=== PATIENT | female | born 1960 | race African-American/Black ===

== ENCOUNTER 2018-06-08 00:45 | Emergency (ER) | payer BC ==
[2018-06-08] MEDS ORDERED: ERYTHROMYCIN 0.5% OPHTHALMIC OINTMENT 3.5 GM TUBE OD ONE (01:57)
[2018-06-08] MEDS ORDERED: ERYTHROMYCIN 0.5% OPHTHALMIC OINTMENT 3.5 GM TUBE ONE (02:01)
--- NOTE | 2018-06-08 02:10 | PDOC ---
History of Present Illness - General Stated Complaint: ITCHY EYE Time Seen by Provider: 06/08/18 01:39 History Source: Patient Exam Limitations: No Limitations - History of Present Illness Initial Comments: 06/08/18 02:02 HISTORY OF PRESENT ILLNESS: This 57-year-old woman who presents emergency department for evaluation of itchiness and irritation to the right eye which has been intermittent over the past 3 weeks. She noted the pain it started 3 weeks ago but it spontaneously resolved after a few days. Patient maintains that there was still a minor aches over the period which eventually resolved after approximately one week. Patient now has had 3-4 days of itching and irritation to her eye. She reports the irritation is in the right eye at the 5 o 'clock position over the sclera. She denies any blurry vision, headaches, visual disturbances or floaters. No recent travel or sick contacts. PAST MEDICAL HISTORY: Breast CA SURGICAL HISTORY: Denies ALLERGIES: Codeine REVIEW OF SYSTEMS General/Constitutional: Denies fever or chills. Denies weakness, weight change. HEENT: see HPI Cardiovascular: Denies chest pain or shortness of breath. Respiratory: Denies cough, wheezing, or hemoptysis. Gastrointestinal: Denies nausea, vomiting, diarrhea or constipation. Denies rectal bleeding. Genitourinary: Denies dysuria, frequency, or change in urination. Musculoskeletal: Denies joint or muscle swelling or pain. Denies neck or back pain. Skin and breasts: Denies rash or easy bruising. Neurologic: Denies headache, vertigo, loss of consciousness, or loss of sensation. Psychiatric: Denies depression or anxiety. Endocrine: Denies increased thirst. Denies abnormal weight change. Hematologic/Lymphatic: Denies anemia, easy bleeding, or history of blood clots. Allergic/Immunologic: Denies hives or skin allergy. Denies latex allergy. PHYSICAL EXAM General Appearance: Well-appearing, appropriately dressed. No apparent distress , no intoxication. HEENT: EOMI, PERRLA, normal ENT inspection, normal voice, TMs normal, pharynx normal. No conjunctival pallor. No photophobia, scleral icterus. Neck: Supple. Trachea midline. No tenderness, rigidity, carotid bruit, stridor , lymphadenopathy, or thyromegaly. Respiratory/Chest: Lungs CTAB. No shortness of breath, chest tenderness, respiratory distress, accessory muscle use. No crackles, rales, rhonchi, stridor , wheezing, dullness Cardiovascular: RRR. S1, S2. No JVD, murmur, bradycardia, tachycardia. Neurologic: case management assistant II-XII intact. Fully oriented, alert. Appropriate mood/affect. Motor strength 5/5. No appreciable EOM palsy, facial droop or sensory deficit. 06/11/18 12:00 Past History - Past Medical History Allergies/Adverse Reactions: Allergies Allergy/AdvReac Type Severity Reaction Status Date / Time codeine [Codeine] AdvReac Mild Nausea Verified 06/08/18 02:21 Home Medications: Ambulatory Orders Verapamil 240 mg PO DAILY 04/20/11 Aspirin [ASA -] 81 mg PO DAILY 12/01/11 Anastrozole [Arimidex -] 1 mg PO DAILY 12/08/11 Irbesartan/Hydrochlorothiazide [Avalide 150-12.5 mg Tablet] 1 each PO DAILY 08/03 Albuterol Sulfate Inhaler - [Ventolin HFA Inhaler -] 2 inh IH Q4H PRN #1 inh Azithromycin [Zithromax Tri-Nael (3 DAYS) -] 500 mg PO DAILY #3 tablet 09/27/17 Ipratropium [place] 30 ml NS BID PRN #1 spray 09/27/17 Methylprednisolone [Medrol Dose Nael] 4 mg PO ASDIR #21 tablet 09/27/17 Erythromycin 0.5% Eye Ointment [Erythromycin 0.5% Eye Ointment -] 1 applic OD QID #1 tube 06/08/18 Anemia: No Asthma: No Cancer: Yes (BREAST 2002) Cardiac Disorders: Yes (ISCHAEMIA) CVA: No COPD: No CHF: No Dementia: No Diabetes: No GI Disorders: No Disorders: No HTN: Yes Hypercholesterolemia: Yes Liver Disease: No Seizures: No Thyroid Disease: No - Surgical History Abdominal Surgery: Yes (TRANSFLAP FOR BREAST RECONSTRUCTION) Appendectomy: No Cardiac Surgery: No Cholecystectomy: No Lung Surgery: No Neurologic Surgery: No Orthopedic Surgery: No - Immunization History Td Vaccination: Yes Immunization Up to Date: Yes - Suicide/Smoking/Psychosocial Hx Smoking Status: No Smoking History: Never smoked Have you smoked in the past 12 months: No Number of Cigarettes Smoked Daily: 0 Hx Alcohol Use: No Drug/Substance Use Hx: No Substance Use Type: None Hx Substance Use Treatment: No Medical Decision Making - Medical Decision Making 06/08/18 01:58 A/P: 57-year-old woman with right eye irritation intermittent for 3 weeks EYE EXAMINATION: Visual acuity: 20/20 in the left eye, 20/20 in the right eye, near, corrected The lid and lashes are normal. Extraocular movements are intact. The conjunctiva is clear without injection, or discharge. Mild erythema present to right conjunctiva. The corneal surface is normal post tetracaine and fluorescein. There is no corneal abrasion or foreign body. There is no abnormal fluorescein uptake. The pupils are equal, round and reactive to light. The fundus shows normal vessels and normal discs. No retained foreign body under the upper eyelid I will treat the patient for conjunctivitis. Erythromycin ointment to the right eye Discharge home *DC/Admit/Observation/Transfer Diagnosis at time of Disposition: Conjunctivitis Qualifiers: Conjunctivitis type: acute Acute conjunctivitis type: unspecified Laterality: right Qualified Code(s): H10.31 - Unspecified acute conjunctivitis, right eye - Discharge Dispostion Disposition: HOME Condition at time of disposition: Stable Decision to Admit order: No - Prescriptions Prescriptions: Erythromycin 0.5% Eye Ointment [Erythromycin 0.5% Eye Ointment -] 1 applic OD QID #1 tube - Referrals Referrals: Moshe Bae MD [Primary Care Provider] - Humble Gómez MD [Staff Physician] - - Patient Instructions Additional Instructions: Rest, avoid rubbing eyes Wash hands frequently as this is very contagious Wash hands, use eye drops as directed, wash hands after use Do not share eye ointment with other person to may become infected as this will infect them Erthromycin ointment to affected eye 4 times a day for 5 days Avoid contact with others until redness and discharge is gone from eyes. Followup with ophthalmology or private physician as needed - Post Discharge Activity Forms/Work/School Notes: Back to Work
[2018-06-08 02:28] VITALS: BP 147/63; PULSE 82; TEMP 97.6; BMI 25.8
== END 2018-06-08 02:29 | disposition home or self-care (01) ==
LOC: JER 00:45
PROC: 4A07X0Z Measurement of Visual Acuity, External Approach (ICD-10-PCS; principal; 2018-06-08)
DX: H10.31 Unspecified acute conjunctivitis, right eye (principal); I10 Essential (primary) hypertension; E78.00 Pure hypercholesterolemia, unspecified; Z85.3 Personal history of malignant neoplasm of breast
CPT/HCPCS: 99281-25

== ENCOUNTER 2020-09-02 13:54 | Emergency (ER) | payer BC ==
[2020-09-02 14:01] VITALS: BP 183/81; PULSE 78; TEMP 98; BMI 27.8
[2020-09-02] MEDS ORDERED: FLUORESCEIN NA 1 EA STRIP OD ONE (14:45)
[2020-09-02] MEDS ORDERED: TETRACAINE 0.5% HCL 0.6ML DROPPER.BOTTLE OD ONE (14:45)
== END 2020-09-02 15:06 | disposition home or self-care (01) ==
LOC: JERFT 13:54
DX: H11.31 Conjunctival hemorrhage, right eye (principal)
CPT/HCPCS: 99283-25

== ENCOUNTER 2022-11-12 14:41 | Emergency (ER) | payer BC ==
[2022-11-12 14:57] VITALS: BP 136/71; PULSE 82; RESP 18; TEMP 98.4; BMI 26.6
== END 2022-11-12 17:05 | disposition home or self-care (01) ==
LOC: JER 14:41 → JERFT 14:41
DX: S93.505A Unspecified sprain of left lesser toe(s), initial encounter (principal); X50.9XXA Other and unspecified overexertion or strenuous movements or postures, initial encounter
CPT/HCPCS: 73630-TC-LT; 99283-25

== ENCOUNTER 2022-11-30 13:25 | Emergency (ER) | payer BC ==
[2022-11-30 13:52] VITALS: TEMP 98.2; BMI 25.4
[2022-11-30] MEDS ORDERED: KETOROLAC TROMETHAMINE 30 MG/1 ML VIAL IM ONE (15:36)
[2022-11-30] MEDS ORDERED: KETOROLAC TROMETHAMINE 30 MG/1 ML VIAL ONE (15:43)
[2022-11-30] MEDS ORDERED: LIDOCAINE 5% TOPICAL PATCH TP ONE (15:51)
[2022-11-30] MEDS ORDERED: LIDOCAINE 5% TOPICAL PATCH ONE (15:52)
[2022-11-30 18:05] VITALS: BP 147/85; PULSE 77; RESP 18
[2022-11-30] MEDS ORDERED: IBUPROFEN 600 MG TABLET (FP) PO ONE ×2 (18:08→18:09)
[2022-11-30] MEDS ORDERED: LIDOCAINE PATCH REMOVAL MC SCH (22:00)
== END 2022-11-30 18:11 | disposition home or self-care (01) ==
LOC: JER 13:25
PROC: 3E0233Z Introduction of Anti-inflammatory into Muscle, Percutaneous Approach (ICD-10-PCS; principal; 2022-11-30)
DX: S82.62XA Displaced fracture of lateral malleolus of left fibula, initial encounter for closed fracture (principal); M25.552 Pain in left hip; X58.XXXA Exposure to other specified factors, initial encounter; Z20.822 Contact with and (suspected) exposure to COVID-19
CPT/HCPCS: 0241U-QW; 73521-TC-FY; 73552-TC-LT-FY; 73590-TC-LT-FY; 73610-TC-LT-FY; 73630-TC-LT; 99284-25